=== PATIENT | female | born 1965 | race Hispanic/Latino ===

== ENCOUNTER 2017-12-05 12:42 | Emergency (ER) | payer OTHER ==
[~2017-12-05] VITALS: Ht 167.6 cm; Wt 68.0 kg
[2017-12-05 13:16] LABS: ABSOLUTE BASOPHIL COUNT 0 /CUMM (0.0-0.2); ABSOLUTE EOSINOPHIL COUNT 0.1 /CUMM (0.0-0.7); ABSOLUTE GRANULOCYTE CT 5.7 /CUMM (1.4-6.5); ABSOLUTE LYMPH COUNT 2.1 /CUMM (1.2-3.4); ABSOLUTE MONOCYTE COUNT 0.8 /CUMM (0.10-0.60); BASOPHIL % 0.4 % (0.0-2.0); EOSINOPHIL % 0.7 % (0-5); GRANULOCYTE % 65.6 % (42.2-75.2); HEMATOCRIT 36.6 % (37-47); MEAN CORPUSCULAR HGB 29.6 PG (27.0-31.0); MEAN CORPUSCULAR HGB CONC 34.1 G/DL (33.0-37.0); MEAN PLATELET VOLUME 7.7 FL (7.4-10.4); PLATELET COUNT 302 /CUMM (130-400); RBC DISTRIBUTION WIDTH 14.5 % (11.5-14.5); RED BLOOD CELL CT 4.21 /CUMM (4.20-5.40); WHITE BLOOD CELL COUNT 8.7 /CUMM (4.8-10.8)
[2017-12-05 13:31] LABS: PTT 25 SEC (25-37)
--- NOTE | 2017-12-05 13:51 | ED CARDIAC/CP/PALPITATIONS ---
History of Present Illness General Chief Complaint: Chest Pain Stated Complaint: CHEST PAIN Source: patient, family Exam Limitations: language barrier Vital Signs & Intake/Output Vital Signs & Intake/Output Vital Signs Date Time Temp Pulse Resp B/P B/P Pulse O2 O2 Flow FiO2 Mean Ox Delivery Rate 12/05 1802 98.2 70 16 112/64 99 Room Air 12/05 1422 85 18 106/66 99 Room Air 12/05 1248 97.0 79 18 121/78 98 Room Air Allergies Coded Allergies: No Known Allergies (04/18/16) Reconcile Medications Lidocaine HCl (Lidocaine HCl Viscous) 2 % SOLUTION 15 ML PO 4 TIMES/DAY esophagitis gi coacktail mixed with maalox Omeprazole 40 MG CAPSULE. 1 CAP PO DAILY esophagitis Triage Note: 52 YO FEMALE TO TRIAGE C/O EPIGASTIC AND R SIDED CHEST PAIN SINCE MONDAY. STATES PAIN HAS BEEN ON/OFF IN NATURE, STATES PAIN OCCASIONALLY WILL RADIATE INTO THROAT. DENIES SOB. DENIES NV. STATES OCASIONAL ARENAS. PT TO [facility] ON ARRIVAL FOR EKG. Triage Nurses Notes Reviewed? yes Onset: Abrupt Duration: day(s): (few), constant Timing: recent history Quality/Severity: mild, moderate Location: epigastric HPI: 52-year-old female comes into the emergency room for further evaluation of burning pain in chest and hurts when she swallows. Patient reports that she was recently started on doxycycline a few days prior to symptoms. She was told that she had a vaginal infection. The symptoms began a couple days after the medication. She complains of a mild headache dizziness at times but mainly hurts when she swallows and feels pain in her upper abdomen into her chest that is burning. Denies any vomiting. Denies any radiation. Denies any cardiac. denies any History of MIs. (Anshu Nguyen) Past History Travel History Traveled to [place] past 21 day No Medical History Any Pertinent Medical History? see below for history Neurological: NONE EENT: NONE Cardiovascular: NONE Respiratory: NONE Gastrointestinal: NONE Hepatic: NONE Renal: NONE Musculoskeletal: NONE Psychiatric: NONE Endocrine: NONE Blood Disorders: NONE Cancer(s): NONE TESTER COMPRESSED GASES/Reproductive: NONE History of MRSA: No History of VRE: No History of CDIFF: No Surgical History Surgical History: none Psychosocial History Who do you live with Family Services at Home None What is your primary language Swedish Tobacco Use: Never used Family History Hx Contributory? No (Anshu Nguyen) Review of Systems Review of Systems Constitutional: Reports: no symptoms. EENTM: Reports: no symptoms. Respiratory: Reports: see HPI. Cardiovascular: Reports: see HPI. GI: Reports: no symptoms. Genitourinary: Reports: no symptoms. Musculoskeletal: Reports: no symptoms. Skin: Reports: no symptoms. Neurological/Psychological: Reports: no symptoms. Hematologic/Endocrine: Reports: no symptoms. Immunologic/Allergic: Reports: no symptoms. All Other Systems: Reviewed and Negative (Anshu Nguyen) Physical Exam Physical Exam General Appearance: well developed/nourished, no apparent distress, alert Head: atraumatic, normal appearance Eyes: Bilateral: normal appearance. Ears, Nose, Throat: normal ENT inspection, hearing grossly normal Neck: normal inspection Respiratory: normal breath sounds, no respiratory distress Cardiovascular: regular rate/rhythm Gastrointestinal: soft Back: normal inspection Extremities: normal inspection Neurologic/Psych: awake, alert, oriented x 3 Skin: intact, normal color Core Measures ACS in differential dx? Yes CVA/TIA Diagnosis No Sepsis Present: No Sepsis Focused Exam Completed? No (Anshu Nguyen) Progress Differential Diagnosis: AMI, atrial fibrillation, musculoskeletal pain, myocarditis, pneumonia, pulmonary embolism Plan of Care: Orders Procedure Date/time Status TROPONIN LEVEL 12/05 1630 Complete EKG 12/05 1630 Active Telemetry/Block Cuber 12/05 1350 Active TROPONIN LEVEL 12/05 1257 Complete PARTIAL THROMBOPLASTIN TIME 12/05 1257 Complete LIPASE 12/05 1257 Complete COMPREHENSIVE METABOLIC PANEL 12/05 1257 Complete CBC WITHOUT DIFFERENTIAL 12/05 1257 Complete EKG 12/05 1244 Active Laboratory Tests 12/05/17 1632: Troponin I < 0.01 12/05/17 1309: Anion Gap 13, Estimated GFR > 60, BUN/Creatinine Ratio 10.0, Glucose 116 H, Calcium 9.3, Total Bilirubin 0.5, AST 33, ALT 49, Alkaline Phosphatase 65, Troponin I < 0.01, Total Protein 7.4, Albumin 4.5, Globulin 2.9, Albumin/ Globulin Ratio 1.6, Lipase 85, APTT 25, CBC w Diff NO MAN DIFF REQ, RBC 4.21, MCV 87.0, MCH 29.6, MCHC 34.1, RDW 14.5, MPV 7.7, Gran % 65.6, Lymphocytes % 24.5, Monocytes % 8.8, Eosinophils % 0.7, Basophils % 0.4, Absolute Granulocytes 5.7, Absolute Lymphocytes 2.1, Absolute Monocytes 0.8 H, Absolute Eosinophils 0.1, Absolute Basophils 0 Diagnostic Imaging: Viewed by Me: Radiology Read. Discussed w/RAD: Radiology Read. Radiology Impression: PATIENT: TEENA ARRIETA PRESENT AGE: 52 PATIENT ACCOUNT NO: [id number] : 63 LOCATION: [facility] ORDERING PHYSICIAN: Anshu LANDAVERDE SERVICE DATE: 12/05/17 EXAM TYPE: RAD - XRY-CHEST XRAY, TWO VIEWS EXAMINATION: XR CHEST CLINICAL INFORMATION: Chest pains. COMPARISON: None TECHNIQUE: 2 views of the chest were obtained. FINDINGS: No airspace opacities or pleural effusions are seen. The cardiomediastinal silhouette is normal. No acute osseous abnormality is seen. IMPRESSION: Clear lungs. No acute process. DICTATED BY: Aamir Decker MD DATE/TIME DICTATED:08/24 IT PROFESSIONAL:HUGO DATE/TIME TRANSCRIBED:12/05/171450 CONFIDENTIAL, DO NOT COPY WITHOUT APPROPRIATE AUTHORIZATION. <Electronically signed in Other Vendor System> SIGNED BY: Aamir Decker MD 12/05/171454 Initial ED EKG: normal sinus rhythm, rate (74), nonspecific ST T wave chg Prior EKG: unchanged (Venu LANDAVERDE,Anshu) Departure Departure Disposition: HOME OR SELF CARE Condition: Stable Clinical Impression Primary Impression: Acute esophagitis Referrals: Lizet Moreland MD (PCP/Family) Additional Instructions: Take omeprazole and GI cocktail prescribed. Discontinue taking doxycycline. Follow-up with your [facility] [facility] doctor. Follow-up with your primary care doctor. Return if any other concerns worsening symptoms. Please go over all results of today's visit with your primary care doctor. Contact your primary care doctor to let them know you were here in the emergency room. There may be nonspecific findings which may not be related to your visit today here in the emergency room but may require further evaluation and chronic monitoring by your primary care doctor. If you had a laceration today the chance of foreign body always remains. You should follow-up with your primary care doctor for recheck in 3-5 days for a wound check. If you had an x-ray done there is a chance that a fracture could have been missed on initial read and you should follow-up with your primary care doctor for repeat x-rays if symptoms persist. If your blood pressure was elevated here in the emergency room please have rechecked by [facility] primary care doctor within the next 48. If you were prescribed a narcotic here in the emergency room or any type of controlled substances you're not allowed to drive while taking this medication or operate any type of heavy machinery. Narcotics can make you feel lightheaded dizziness nausea and can cause constipation. You may need to bulk picker a stool softener. Thank you for choosing [facility] emergency room. Please return to the emergency room immediately if you have any other concerns worsening of symptoms. Departure Forms: Customer Survey General Discharge Information Prescriptions: Current Visit Scripts Lidocaine HCl (Lidocaine HCl Viscous) 15 ML PO 4 TIMES/DAY #100 ML gi coacktail mixed with maalox Omeprazole 1 CAP PO DAILY #30 CAP Comments 12/05/2017 6:37:26 PM Symptoms significantly improved after GI cocktail. Symptoms are most consistent with esophagitis likely related to the doxycycline. 2 normal troponins. No suspicion for pulmonary embolism. No evidence of breath. No hypoxia tachycardia. Patient is in no apparent distress. Reevaluated multiple times. Plan of care discussed with the patient and the daughter. The daughter helped with translation. (Anshu Nguyen) PA/CHIEF H[employer] RESOURCES OFFICER Co-Sign Statement Statement: ED Attending supervision documentation- x I saw and evaluated the patient. I have also reviewed all the pertinent lab results and diagnostic results. I agree with the findings and the plan of care as documented in the PA's/CHIEF HUMAN RESOURCES OFFICER's documentation. [] I have reviewed the ED Record and agree with the PA's/CHIEF HUMAN RESOURCES OFFICER's documentation. [] Additions or exceptions (if any) to the PAs/CHIEF HUMAN RESOURCES OFFICER's note and plan are summarized below: [] (Ivan MOTT,Panda) Critical Care Note Critical Care Note Critical Care Time: non-applicable (Anshu Nguyen)
--- NOTE | 2017-12-05 14:55 | RADIOLOGY REPORT ---
EXAMINATION: XR CHEST CLINICAL INFORMATION: Chest pains. COMPARISON: None TECHNIQUE: 2 views of the chest were obtained. FINDINGS: No airspace opacities or pleural effusions are seen. The cardiomediastinal silhouette is normal. No acute osseous abnormality is seen. IMPRESSION: Clear lungs. No acute process.
[2017-12-05] MEDS ORDERED: OMEPRAZOLE40 M1 PO (17:55)
[2017-12-05] MEDS ORDERED: LIDOCAINE HCL V15 ML PO (17:55)
[2017-12-05 18:02] VITALS: BP 112/64
== END 2017-12-05 18:03 ==
LOC: ERH 12:42
PROVIDERS: Physician Assistant Medical
DX: K20.9 Esophagitis, unspecified (principal)
CPT/HCPCS: 71046; 93005; 93010